=== PATIENT | female | born 1970 | race Two or more races ===

== ENCOUNTER 2023-05-18 22:19 | Emergency (ER) | payer OTHER ==
[~2023-05-18] VITALS: Ht 157.5 cm; Wt 73.5 kg
[2023-05-18] MEDS ORDERED: TOPROL XL25 M1 PO (22:30)
[2023-05-18] MEDS ORDERED: COZAAR25 MG PO (22:30)
[2023-05-18] MEDS ORDERED: ADULT LOW DOSE81 M1 PO (22:31)
[2023-05-18] MEDS ORDERED: METOCLOPRAMIDE HCL 5 MG/ML VIAL IM STA (23:37)
[2023-05-18] MEDS ORDERED: RINGERS SOLUTION,LACTATED 1,000 ML IV STA (23:39)
[2023-05-18] MEDS ORDERED: FAMOTIDINE/PF 20 MG/2 ML VIAL IV PUSH STA (23:39)
[2023-05-18] MEDS ORDERED: ONDANSETRON HCL 2 MG/ML VIAL IV STA (23:40)
[2023-05-19 00:19] LABS: HEMATOCRIT 42.4 % (36.0-45.00); HEMOGLOBIN 14.5 g/dL (12.0-15.00); MEAN CELL VOLUME 91.8 fL (80.00-100.00); MEAN CORPUSCULAR HEMOGLOBIN 31.4 pg (27.00-32.0); MEAN CORPUSCULAR HGB CONC 34.2 g/dl (32.0-36.0); PLATELET COUNT 191 K/uL (150-450); RED BLOOD COUNT 4.62 M/uL (4.00-6.00); RED CELL DISTRIBUTION WIDTH 13.5 % (11.5-14.5)
[2023-05-19 00:35] LABS: ALBUMIN 4.2 gm/dL (3.4-5.0); BILIRUBIN TOTAL 0.25 mg/dL (0.3-1.2); CALCIUM 9.5 mg/dL (8.5-10.1); CREATININE SERUM 0.63 mg/dL (0.55-1.02); GFR 99.62; GLOBULINA 3.5 G/DL (2.4-3.5); POTASSIUM 3.14 mEq/L (3.5-5.1); TOTAL PROTEIN 7.7 gm/dL (6.4-8.2)
== END 2023-05-19 01:33 | disposition home or self-care (01) ==
LOC: ER 22:19
DX: R11.10 Vomiting, unspecified (principal); R42 Dizziness and giddiness